=== PATIENT | male | born 1960 | race Hispanic/Latino ===

== ENCOUNTER 2019-04-27 19:10 | Emergency (ER) | payer MEDICAID | END 2019-04-27 22:27 | disposition home or self-care (01) | LOC: EDH 19:10 | DX: G89.29 Other chronic pain (principal); M79.604 Pain in right leg; M79.605 Pain in left leg; I10 Essential (primary) hypertension; Z72.0 Tobacco use | CPT/HCPCS: 73590 ==

== ENCOUNTER 2019-05-04 02:13 | Emergency (ER) | payer MEDICAID ==
[2019-05-04] MEDS ORDERED: ACETAMINOPHEN EXTRA STRENGTH 500 MG TABLET ONE (02:47)
== END 2019-05-04 03:42 | disposition home or self-care (01) ==
LOC: EDH 02:13
DX: M79.604 Pain in right leg (principal); M79.605 Pain in left leg; I10 Essential (primary) hypertension; I25.2 Old myocardial infarction; Z98.890 Other specified postprocedural states; Z72.0 Tobacco use

== ENCOUNTER 2019-05-12 01:27 | Emergency (ER) | payer MEDICAID ==
[2019-05-12] MEDS ORDERED: ACETAMINOPHEN 325 MG TAB ONE (02:45)
== END 2019-05-12 03:00 | disposition home or self-care (01) ==
LOC: EDH 01:27
DX: M25.561 Pain in right knee (principal); I10 Essential (primary) hypertension; G89.29 Other chronic pain; I25.2 Old myocardial infarction; Z72.0 Tobacco use
CPT/HCPCS: 73562

== ENCOUNTER 2019-05-20 19:14 | Emergency (ER) | payer MEDICAID | END 2019-05-20 20:49 | disposition home or self-care (01) | LOC: EDH 19:14 | DX: M79.606 Pain in leg, unspecified (principal); R63.8 Other symptoms and signs concerning food and fluid intake; X58.XXXA Exposure to other specified factors, initial encounter ==

== ENCOUNTER 2019-05-23 22:20 | Emergency (ER) | payer MEDICAID | END 2019-05-23 22:55 | disposition home or self-care (01) | LOC: EDH 22:20 | DX: M79.604 Pain in right leg (principal); I10 Essential (primary) hypertension; I25.2 Old myocardial infarction; Z86.73 Personal history of transient ischemic attack (TIA), and cerebral infarction without residual deficits ==

== ENCOUNTER 2020-12-26 01:48 | Emergency (ER) | payer MEDICAID ==
[~2020-12-26] VITALS: Ht 175.3 cm; Wt 68.0 kg
[2020-12-26 01:50] VITALS: BP 124/62
[2020-12-26] MEDS ORDERED: NEOMY SULF/BACITRA/POLYMYXIN B 1 EACH PACKET TP ONE ×2 (04:00→05:10)
[2020-12-26] MEDS ORDERED: TETANUS/DIPHTHERIA TOXOID [ADULT] 0.5 ML VIAL IM ONE ×2 (04:00→05:11)
[2020-12-26 05:24] VITALS: BP 130/71
== END 2020-12-26 05:41 | disposition home or self-care (01) ==
LOC: EDH 01:48
DX: S50.312A Abrasion of left elbow, initial encounter (principal); W18.39XA Other fall on same level, initial encounter; Y93.89 Activity, other specified; Y92.89 Other specified places as the place of occurrence of the external cause; Y99.8 Other external cause status
CPT/HCPCS: 73080; 90471; 90714

== ENCOUNTER 2022-02-02 17:25 | Emergency (ER) | payer MEDICAID ==
[~2022-02-02] VITALS: Ht 170.2 cm; Wt 54.4 kg
[2022-02-02 19:53] LABS: HEMATOCRIT 34.1 % (42-54); MEAN CORPUSCULAR HEMOGLOBIN 31.9 pg (27.0-33.0); MEAN CORPUSCULAR HGB CONC 32.8 g/dL (32.0-36.0); MEAN CORPUSCULAR VOLUME 97.2 fL (79-99); RED BLOOD CELL COUNT(AUTO) 3.51 MIL/uL (4.50-6.20); RED CELL DISTRIBUTION WIDTH 14.2 % (11.0-15.5); WHITE BLOOD COUNT (AUTO) 9.1 K/uL (4.8-10.8)
[2022-02-02] MEDS ORDERED: ACETAMINOPHEN 500 MG TABLET PO ONE (20:00)
[2022-02-02 20:15] LABS: ALBUMIN 3.4 g/dL (3.5-5.0); TOTAL PROTEIN, SERUM 7.4 g/dL (6.0-8.3)
[2022-02-02 20:48] LABS: APPEARANCE,URINE SL CLOUDY (CLEAR); BILIRUBIN,URINE NEGATIVE (NEGATIVE); COLOR,URINE YELLOW (YELLOW); GLUCOSE, URINE (UA) NEGATIVE (NEGATIVE); KETONES,URINE NEGATIVE (NEGATIVE); LEUKOCYTE ESTERASE ,URINE NEGATIVE (NEGATIVE); NITRATE,URINE NEGATIVE (NEGATIVE); OCCULT BLOOD,URINE NEGATIVE (NEGATIVE); PH,URINE 5.5 (5.0-8.0); PROTEIN,URINE NEGATIVE (NEGATIVE)
[2022-02-02] MEDS ORDERED: BACI30OI6 TP (21:25)
[2022-02-02 21:28] LABS: BACTERIA,URINE Rare /HPF (None Seen); MUCUS,URINE Rare LPF (None Seen); RBC,URINE 0-1 /HPF (0-1); SQUAMOUS EPITHELIAL CELL,UR Rare /HPF (0-2); WBC,URINE 0-1 /HPF (0-1)
[2022-02-02 21:54] VITALS: BP 115/65
== END 2022-02-02 21:55 | disposition home or self-care (01) ==
LOC: EDH 17:25
DX: S01.81XA Laceration without foreign body of other part of head, initial encounter (principal); Z95.1 Presence of aortocoronary bypass graft; X58.XXXA Exposure to other specified factors, initial encounter; Y93.89 Activity, other specified; Y92.89 Other specified places as the place of occurrence of the external cause; Y99.8 Other external cause status
CPT/HCPCS: 36415; 70450; 70486; 72125; 80053; 81001; 84484; 85027; 93005

== ENCOUNTER 2023-04-30 18:19 | Inpatient (IN) | payer MEDICAID ==
[~2023-04-30] VITALS: Ht 162.6 cm; Wt 46.3 kg
[~2023-04-30 18:19] MED LIST: BACI30OI6 TP
[2023-04-30 19:14] LABS: BASOPHILS # (AUTO) 0.03 K/uL (0.00-0.20); BASOPHILS % (AUTO) 0.3 % (0.0-5.0); EOSINOPHILS # (AUTO) 0.06 K/uL (0.00-0.70); EOSINOPHILS % (AUTO) 0.6 % (0.0-8.0); HEMATOCRIT 40.2 % (42-54); IMMATURE GRANULOCYTE ABSOLUTE 0.04 K/uL (0-1); LYMPHOCYTES # (AUTO) 2.2 K/uL (1.0-4.8); LYMPHOCYTES % (AUTO) 21.8 % (21.0-51.0); MEAN CORPUSCULAR HEMOGLOBIN 31.4 pg (27.0-33.0); MEAN CORPUSCULAR HGB CONC 32.6 g/dL (32.0-36.0); MEAN CORPUSCULAR VOLUME 96.4 fL (79-99); MONOCYTES # (AUTO) 0.6 K/uL (0.1-1.0); MONOCYTES % (AUTO) 5.9 % (3.0-13.0); NEUTROPHILS # (AUTO) 7.2 K/uL (1.8-7.7); PLATELET COUNT (AUTO) 238 K/uL (130-400); RED BLOOD CELL COUNT(AUTO) 4.17 MIL/uL (4.50-6.20); RED CELL DISTRIBUTION WIDTH 13.2 % (11.0-15.5); WHITE BLOOD COUNT (AUTO) 10.2 K/uL (4.8-10.8)
[2023-04-30 19:20] LABS: CREATININE 0.7 mg/dL (0.5-1.5); POTASSIUM 4.1 mmol/L (3.5-5.1)
[2023-04-30 19:24] LABS: ALBUMIN 3.7 g/dL (3.5-5.0)
[2023-04-30 19:44] LABS: BILIRUBIN,TOTAL 0.3 mg/dL (0.2-1.0); TOTAL PROTEIN, SERUM 8.7 g/dL (6.0-8.3)
[2023-04-30] MEDS ORDERED: TETANUS/DIPHTHERIA TOXOID [ADULT] 0.5 ML VIAL IM ONE (21:00)
[2023-04-30] MEDS ORDERED: ZOSYN 3.375GM +NS 50ML IV ONE (21:00)
[2023-04-30] MEDS ORDERED: 0.9%NACL 1000ML 1,000 ML IV ONE (21:00)
[2023-04-30] MEDS ORDERED: VANCOMYCIN KIT 1 GM/250 ML IV.KIT IV ONE (21:00)
[2023-04-30] MEDS ORDERED: MORPHINE 2 MG SYG IV PRN (23:30)
[2023-04-30] MEDS ORDERED: ONDANSETRON 4MG INJ IV PRN (23:30)
[2023-04-30] MEDS ORDERED: VANCOMYCIN PROTOCOL PER PHARMACY IV SCH (23:30)
[2023-04-30] MEDS ORDERED: MORPHINE 4 MG SYG IV PRN (23:30)
[2023-04-30] MEDS ORDERED: ACETAMINOPHEN 325 MG TAB PO PRN ×2 (23:30)
[2023-04-30] MEDS ORDERED: VANCOMYCIN 1G/250ML KIT 250 ML IV SCH (23:30)
[2023-05-01] VITALS (9 sets, daily range): BP systolic 116–159; BP diastolic 61–85; PULSE 52–72; RESP 16–19; O2SAT 97–98
[2023-05-01] MEDS ORDERED: VANCOMYCIN PROTOCOL PER PHARMACY IV SCH (01:00)
[2023-05-01 06:16] LABS: BASOPHILS # (AUTO) 0.04 K/uL (0.00-0.20); BASOPHILS % (AUTO) 0.4 % (0.0-5.0); EOSINOPHILS # (AUTO) 0.08 K/uL (0.00-0.70); EOSINOPHILS % (AUTO) 0.8 % (0.0-8.0); HEMATOCRIT 34.8 % (42-54); IMMATURE GRANULOCYTE ABSOLUTE 0.04 K/uL (0-1); LYMPHOCYTES # (AUTO) 1.8 K/uL (1.0-4.8); LYMPHOCYTES % (AUTO) 18.8 % (21.0-51.0); MEAN CORPUSCULAR HEMOGLOBIN 32.4 pg (27.0-33.0); MONOCYTES % (AUTO) 9.8 % (3.0-13.0); NEUTROPHILS # (AUTO) 6.8 K/uL (1.8-7.7); NEUTROPHILS % (AUTO) 69.8 % (40.0-77.0); PLATELET COUNT (AUTO) 288 K/uL (130-400); RED BLOOD CELL COUNT(AUTO) 3.55 MIL/uL (4.50-6.20); RED CELL DISTRIBUTION WIDTH 13.2 % (11.0-15.5); WHITE BLOOD COUNT (AUTO) 9.7 K/uL (4.8-10.8)
[2023-05-01] MEDS: ZOSYN 3.375GM+NS 50ML 50 ML IV SCH ×3 (06:27→21:22)
[2023-05-01 06:34] LABS: CREATININE 0.8 mg/dL (0.5-1.5); MAGNESIUM 1.9 mg/dL (1.80-2.40); PHOSPHORUS 3.5 mg/dL (2.5-4.9); POTASSIUM 5.1 mmol/L (3.5-5.1)
[2023-05-01] MEDS: ENOXAPARIN SODIUM 40 MG/0.4 ML SYRINGE SQ SCH (09:00)
[2023-05-01] MEDS: FAMOTIDINE 20MG TAB PO SCH (09:00)
[2023-05-01] MEDS: VANCOMYCIN 1G/250ML KIT 250 ML IV SCH ×2 (10:09→21:22)
[2023-05-01] MEDS: HALOPERIDOL INJ 5 MG/ML VIAL IV PRN (11:12)
[2023-05-01] MEDS: QUETIAPINE FUMARATE 25 MG TAB PO PRN (17:02)
[2023-05-02] VITALS (7 sets, daily range): BP systolic 96–138; BP diastolic 53–77; PULSE 51–72; RESP 17–21; O2SAT 98
[2023-05-02] MEDS: ZOSYN 3.375GM+NS 50ML 50 ML IV SCH ×3 (05:01→20:33)
[2023-05-02] MEDS: VANCOMYCIN 1G/250ML KIT 250 ML IV SCH ×2 (08:09→20:40)
[2023-05-02] MEDS: FAMOTIDINE 20MG TAB PO SCH (08:09)
[2023-05-02] MEDS: ENOXAPARIN SODIUM 40 MG/0.4 ML SYRINGE SQ SCH (08:10)
[2023-05-02] MEDS: HALOPERIDOL INJ 5 MG/ML VIAL IV PRN ×2 (12:35→20:30)
[2023-05-02] MEDS: QUETIAPINE FUMARATE 25 MG TAB PO PRN (20:30)
[2023-05-03] VITALS (8 sets, daily range): BP systolic 116–170; BP diastolic 53–114; PULSE 54–84; RESP 16–20; O2SAT 99
[2023-05-03] MEDS: ZOSYN 3.375GM+NS 50ML 50 ML IV SCH ×3 (04:50→20:20)
[2023-05-03 05:57] LABS: CREATININE 0.8 mg/dL (0.5-1.5); POTASSIUM 4.1 mmol/L (3.5-5.1)
[2023-05-03 06:00] LABS: MAGNESIUM 1.9 mg/dL (1.80-2.40); PHOSPHORUS 3.6 mg/dL (2.5-4.9)
[2023-05-03 07:00] LABS: BASOPHILS # (AUTO) 0.02 K/uL (0.00-0.20); BASOPHILS % (AUTO) 0.2 % (0.0-5.0); EOSINOPHILS # (AUTO) 0.11 K/uL (0.00-0.70); EOSINOPHILS % (AUTO) 1.3 % (0.0-8.0); HEMATOCRIT 35.4 % (42-54); IMMATURE GRANULOCYTE ABSOLUTE 0.04 K/uL (0-1); LYMPHOCYTES % (AUTO) 24.6 % (21.0-51.0); MEAN CORPUSCULAR HEMOGLOBIN 32.1 pg (27.0-33.0); MEAN CORPUSCULAR HGB CONC 32.2 g/dL (32.0-36.0); MEAN CORPUSCULAR VOLUME 99.7 fL (79-99); MONOCYTES # (AUTO) 0.9 K/uL (0.1-1.0); MONOCYTES % (AUTO) 10.9 % (3.0-13.0); NEUTROPHILS # (AUTO) 5.1 K/uL (1.8-7.7); NEUTROPHILS % (AUTO) 62.5 % (40.0-77.0); PLATELET COUNT (AUTO) 286 K/uL (130-400); RED BLOOD CELL COUNT(AUTO) 3.55 MIL/uL (4.50-6.20); RED CELL DISTRIBUTION WIDTH 13.2 % (11.0-15.5); WHITE BLOOD COUNT (AUTO) 8.2 K/uL (4.8-10.8)
[2023-05-03] MEDS: VANCOMYCIN 1G/250ML KIT 250 ML IV SCH (08:52)
[2023-05-03] MEDS: FAMOTIDINE 20MG TAB PO SCH (08:53)
[2023-05-03] MEDS: ENOXAPARIN SODIUM 40 MG/0.4 ML SYRINGE SQ SCH (08:53)
[2023-05-03] MEDS: QUETIAPINE FUMARATE 25 MG TAB PO PRN (20:20)
[2023-05-03] MEDS: HALOPERIDOL INJ 5 MG/ML VIAL IV PRN (20:21)
[2023-05-04 00:09] VITALS: BP 150/64; PULSE 68; RESP 18
[2023-05-04] MEDS: ZOSYN 3.375GM+NS 50ML 50 ML IV SCH ×3 (04:15→19:56)
[2023-05-04 04:21] VITALS: BP 116/66; PULSE 56; RESP 16
[2023-05-04 06:16] LABS: BASOPHILS # (AUTO) 0.03 K/uL (0.00-0.20); BASOPHILS % (AUTO) 0.4 % (0.0-5.0); EOSINOPHILS # (AUTO) 0.14 K/uL (0.00-0.70); EOSINOPHILS % (AUTO) 1.8 % (0.0-8.0); HEMATOCRIT 35.9 % (42-54); IMMATURE GRANULOCYTE ABSOLUTE 0.04 K/uL (0-1); LYMPHOCYTES # (AUTO) 1.9 K/uL (1.0-4.8); LYMPHOCYTES % (AUTO) 24.3 % (21.0-51.0); MEAN CORPUSCULAR HEMOGLOBIN 31.5 pg (27.0-33.0); MEAN CORPUSCULAR VOLUME 98.4 fL (79-99); MONOCYTES # (AUTO) 0.8 K/uL (0.1-1.0); MONOCYTES % (AUTO) 10.5 % (3.0-13.0); NEUTROPHILS # (AUTO) 4.9 K/uL (1.8-7.7); NEUTROPHILS % (AUTO) 62.5 % (40.0-77.0); PLATELET COUNT (AUTO) 318 K/uL (130-400); RED BLOOD CELL COUNT(AUTO) 3.65 MIL/uL (4.50-6.20); RED CELL DISTRIBUTION WIDTH 13.2 % (11.0-15.5); WHITE BLOOD COUNT (AUTO) 7.8 K/uL (4.8-10.8)
[2023-05-04 06:40] LABS: CREATININE 0.9 mg/dL (0.5-1.5)
[2023-05-04 08:00] VITALS: BP 104/57; PULSE 58; RESP 14; O2SAT 97
[2023-05-04] MEDS: FAMOTIDINE 20MG TAB PO SCH (08:32)
[2023-05-04] MEDS: ENOXAPARIN SODIUM 40 MG/0.4 ML SYRINGE SQ SCH (08:33)
[2023-05-04 12:00] VITALS: BP 127/70; PULSE 62; RESP 18
[2023-05-04 16:00] VITALS: BP 126/65; PULSE 70; RESP 18
[2023-05-04] MEDS: QUETIAPINE FUMARATE 25 MG TAB PO PRN (19:56)
[2023-05-04 20:00] VITALS: BP 133/76; PULSE 82; RESP 22; O2SAT 98
[2023-05-05] VITALS: BP 129/64; PULSE 68; RESP 20
[2023-05-05 04:00] VITALS: BP 115/67; PULSE 59; RESP 20
[2023-05-05] MEDS: ZOSYN 3.375GM+NS 50ML 50 ML IV SCH ×2 (04:37→13:24)
[2023-05-05 06:25] LABS: BASOPHILS # (AUTO) 0.02 K/uL (0.00-0.20); BASOPHILS % (AUTO) 0.3 % (0.0-5.0); EOSINOPHILS # (AUTO) 0.16 K/uL (0.00-0.70); HEMATOCRIT 35.4 % (42-54); IMMATURE GRANULOCYTE ABSOLUTE 0.07 K/uL (0-1); LYMPHOCYTES # (AUTO) 2.1 K/uL (1.0-4.8); LYMPHOCYTES % (AUTO) 26.4 % (21.0-51.0); MEAN CORPUSCULAR HEMOGLOBIN 32.2 pg (27.0-33.0); MEAN CORPUSCULAR HGB CONC 32.8 g/dL (32.0-36.0); MEAN CORPUSCULAR VOLUME 98.3 fL (79-99); MONOCYTES # (AUTO) 0.8 K/uL (0.1-1.0); MONOCYTES % (AUTO) 9.9 % (3.0-13.0); NEUTROPHILS # (AUTO) 4.8 K/uL (1.8-7.7); NEUTROPHILS % (AUTO) 60.5 % (40.0-77.0); PLATELET COUNT (AUTO) 298 K/uL (130-400); RED CELL DISTRIBUTION WIDTH 13.2 % (11.0-15.5)
[2023-05-05 06:28] LABS: CREATININE 0.7 mg/dL (0.5-1.5); POTASSIUM 3.9 mmol/L (3.5-5.1)
[2023-05-05 08:00] VITALS: BP 117/60; PULSE 56; RESP 20; O2SAT 99
[2023-05-05] MEDS: ENOXAPARIN SODIUM 40 MG/0.4 ML SYRINGE SQ SCH (08:27)
[2023-05-05] MEDS: FAMOTIDINE 20MG TAB PO SCH (08:27)
[2023-05-05 12:00] VITALS: BP 130/67; PULSE 60; RESP 18
[2023-05-05 16:00] VITALS: BP 148/83; PULSE 64; RESP 20
== END 2023-05-05 17:35 | DRG 383 ==
LOC: EDH 18:19 → EDHIP 18:20 → EDH 05-01 00:58 → EDHIP 05-01 01:27 → UNDOADMIN 05-01 01:27 → 3BH 05-01 01:45 → EDHIP 05-01 01:45 → 3BH 05-01 10:55
PROVIDERS: ADMIT Internal Medicine; ATTEND Internal Medicine
DX: L03.115 Cellulitis of right lower limb (principal); G93.40 Encephalopathy, unspecified; L89.159 Pressure ulcer of sacral region, unspecified stage; E88.A Wasting disease (syndrome) due to underlying condition; L02.415 Cutaneous abscess of right lower limb; B96.5 Pseudomonas (aeruginosa) (mallei) (pseudomallei) as the cause of diseases classified elsewhere; F17.210 Nicotine dependence, cigarettes, uncomplicated; Z51.5 Encounter for palliative care; Z68.1 Body mass index [BMI] 19.9 or less, adult
CPT/HCPCS: 36415; 73590; 80048; 80053; 80202; 82550; 82948; 83605; 83735; 84100; 84145; 85025; 87040; 87070; 87076; 87077; 87186; 90714; A6248; G0378; J1630; J1650; J2270; J2543; J3370; J7030